=== PATIENT | female | born 1995 | race Caucasian/White ===

== ENCOUNTER 2019-11-02 16:27 | Outpatient (CLI) | payer OTHER ==
[2019-11-02] MEDS ORDERED: PRENATAL TABLE1 EAC1 PO (17:00)
== END 2019-11-03 10:33 | disposition home or self-care (01) ==
LOC: OBS/DEL 16:27
DX: O60.03 Preterm labor without delivery, third trimester (principal)

== ENCOUNTER 2019-12-04 14:46 | Outpatient (CLI) | payer OTHER ==
[~2019-12-04 14:46] MED LIST: PRENATAL TABLE1 EAC1 PO
== END 2019-12-04 18:38 | disposition home or self-care (01) ==
LOC: OBS/DEL 14:46
DX: O26.843 Uterine size-date discrepancy, third trimester (principal); O26.893 Other specified pregnancy related conditions, third trimester; R10.2 Pelvic and perineal pain; O36.8191 Decreased fetal movements, unspecified trimester, fetus 1

== ENCOUNTER 2020-01-03 03:06 | Outpatient (CLI) | payer OTHER | END 2020-01-03 09:23 | disposition home or self-care (01) | LOC: OBS/DEL 03:06 | DX: O47.1 False labor at or after 37 completed weeks of gestation (principal); O98.813 Other maternal infectious and parasitic diseases complicating pregnancy, third trimester; B37.49 Other urogenital candidiasis ==

== ENCOUNTER 2020-01-03 20:05 | Outpatient (CLI) | payer OTHER | END 2020-01-04 09:25 | disposition home or self-care (01) | LOC: OBS/DEL 20:05 | DX: O47.1 False labor at or after 37 completed weeks of gestation (principal) ==

== ENCOUNTER 2020-01-14 23:24 | Inpatient (IN) | payer OTHER ==
[~2020-01-14] VITALS: Ht 149.9 cm; Wt 59.4 kg
== END 2020-01-17 18:03 | disposition home or self-care (01) | DRG 807 ==
LOC: OB/GYN 23:24 → LDR 23:24 → OB/GYN 01-16 00:27
PROVIDERS: ADMIT Obstetrics & Gynecology
PROC: 10E0XZZ Delivery of Products of Conception, External Approach (ICD-10-PCS; principal; 2020-01-14)
PROC: 0W8NXZZ Division of Female Perineum, External Approach (ICD-10-PCS; 2020-01-14)
PROC: 3E0P7VZ Introduction of Hormone into Female Reproductive, Via Natural or Artificial Opening (ICD-10-PCS; 2020-01-14)
PROC: 3E033VJ Introduction of Other Hormone into Peripheral Vein, Percutaneous Approach (ICD-10-PCS; 2020-01-14)
PROC: 4A1HXCZ Monitoring of Products of Conception, Cardiac Rate, External Approach (ICD-10-PCS; 2020-01-14)
DX: O80 Encounter for full-term uncomplicated delivery (principal); Z37.0 Single live birth; Z3A.39 39 weeks gestation of pregnancy